=== PATIENT | female | born 1990 | race Caucasian/White ===

== ENCOUNTER 2018-11-12 13:05 | Inpatient (IN) | payer OTHER ==
--- NOTE | 2018-11-12 13:17 | PCM.LDHP ---
L&D History of Present Illness - General Date of Service: 11/12/18 Admit Problem/Dx: Admission Diagnosis/Problem Admission Diagnosis/Problem 11/12/18 13:10 40-6/7 week intrauterine , elective induction of labor Source of Information: Patient History Limitations: Reports: No Limitations - History of Present Illness Introduction:: Silvina is a 28-year-old 2 para 1001 white female who has an SOY of 2018 is based upon a certain last menstrual period starting 01/30/2018 the supported by 2 ultrasounds done on 04/10/2018 and 06/19/2018. Or 3 end 67 weeks gestational age upon admission for an elective induction of labor. The procedure , risks, benefits and alternatives of induction of labor discussed in detail with patient. She appears to understand and wishes to proceed. 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 Patient's certain last menstrual start 01/30/2018. Cycles are regular at 2:30 days. Menarche age 15. Positive hCG was on 03/02/2018. Her past obstetric delivery included a 6 lbs. 5 oz. female born 07/07/2015 at 40 weeks gestational age after 20 hours of labor. In [facility]. Child's name is Aime. course: Patient was initially seen for this at 9 weeks gestational age on 04/10/2018. She was seen on a regular basis. Weight gain was from 157.0-191.6 pounds for a 34 pound weight gain. Fundal height growth was appropriate and vital signs are stable throughout the course. She declined genetic evaluation. Her Sullivan depression screening score was 3/30normal. She desires an epidural for analgesia in labor and delivery. She did have flu vaccination on 07/08/2018. Her group B strep screen is negative. She plans to breast-feed. Her T dap was given on 08/26/2018. labs include blood which is positive with a negative antibody screen. Her hemoglobin at first medical visit was 14.0 g/dL and her platelets were 266, 000. She is rubella immune. RPR is nonreactive. Urine culture was negative. GC and Chlamydia were both negative. Hepatitis B surface antigen and HIV assays were both negative. Second trimester labs showed hemoglobin 13.1 g/dL and platelets of 233,000. Her 1 hour GTT was 104normal. Second trimester RPR was nonreactive. Group B strep screen was negative. Allergies none Medications: 1. vitamins daily Past medical history: 1. Normal spontaneous vaginal delivery 07/07/2015. Past surgical history: 1. Breast augmentation surgery 2010 Family history: Mother is alive but suffers from depression. Father is alive with history of alcohol abuse. She has 3 brothers who are alive and well. Maternal grandmother is secondary to Alzheimer's disease. Paternal grandfather is alive with hypertension history. Both paternal grandparents are alive and well. Patient reports no anesthesia, bleeding, blood clotting or problems in the family. Social history: Patient is single. She lives in [facility]. She is a college graduate. She works in the [employer]. Significant other is John. Does not use any significant muscle L call, drugs or tobacco. Review of systems: In general patient has no complaints. Skin: Negative Lungs: No infectious symptoms or shortness of breath Cardiovascular: No chest pain or exercise intolerance Breasts: Changes associated GI: Negative : Changes associated Musculoskeletal: Negative Neurological: Negative In general the patient is well-developed, well-nourished, pleasant female of stated age in no acute distress. Skin is warm dry without lesions. HEENT, neck and back within normal limits. Lungs are clear with good breath sounds in all lung rae. Cardiovascular exam shows regular and rhythm without murmurs. Abdomen protuberant with fundal height consistent with gestational age. Genital: Cervical exam on last evaluation in clinic showed cervix to be 2 cm/80 % effaced/soft/-4/mid position and vertex presentation Extremities and neurological exam are grossly within normal limits. - Related Data Allergies/Adverse Reactions: Allergies Allergy/AdvReac Type Severity Reaction Status Date / Time No Known Allergies Allergy Verified 06/06/15 17:03 CDT Home Medications: Home Meds Vit #108/Iron/FA [ One Tablet] 1 tab PO DAILY 06/06/15 [History ] Acetaminophen [Tylenol Extra Strength] 500 mg PO Q4H PRN #1 tablet 07/09/15 [Rx] Ibuprofen [Motrin] 800 mg PO Q6H PRN #1 tablet 07/09/15 [Rx] Lanolin [Lansinoh HPA] 1 g TOP ASDIRECTED PRN #1 tube 07/09/15 [Rx] Past Medical History Other OB/BYN History: BREAST IMPLANTS H&P Review of Systems - Review of Systems: Review Of Systems: See Below L&D Exam - Exam Exam: See Below Problem List Initiated/Reviewed/Updated: Yes Assessment/Plan Comment:: 1. 40-6/7 week intrauterine admitted for elective induction of labor 2. Group B strep screen negative 3. Patient plans to breast-feed 4. RPR nonreactive 5. Patient desires epidural for analgesia in labor delivery Plan: 1. Pitocin induction of laborprocedure, risks, benefits, alternatives of care discussed with patient. She appears understand and wishes to proceed. 2. Epidural when necessary for labor analgesia 3. CBC, RPR upon admission to labor and delivery 4. Anticipate .
[2018-11-12] MEDS ORDERED: Sodium Chloride 0.9% 10 ML Syringe FLUSH PRN (20:10)
[2018-11-12] MEDS ORDERED: Ondansetron 4 MG/2 ML SDV IVPUSH PRN (20:10)
[2018-11-12] MEDS ORDERED: Acetaminophen 325 MG Tab PO PRN (20:10)
[2018-11-12] MEDS ORDERED: Nalbuphine 20 MG/ML 1 ML Syringe IVPUSH PRN (20:10)
[2018-11-12] MEDS ORDERED: Oxytocin/Lactated Ringers 10 UNIT/1,000 ML BAG IV SCH (20:15)
[2018-11-12] MEDS ORDERED: Misoprostol 25 MCG (1/4 of 100 MCG) Tab VAG ONE (20:37)
[2018-11-12] MEDS ORDERED: Bupivacaine 0.25% 10 ML SDV ONE (22:00)
[2018-11-12] MEDS ORDERED: Lidocaine 1.5% with EPINEPHrine 1:200,000 5 ML Amp ONE (22:00)
[2018-11-12] MEDS ORDERED: Misoprostol 25 MCG (1/4 of 100 MCG) Tab VAG SCH (23:45)
[2018-11-13] MEDS: Misoprostol 25 MCG (1/4 of 100 MCG) Tab VAG SCH ×3 (00:20→07:22)
[2018-11-13] MEDS: Lactated Ringers 1,000 ML IV SCH ×3 (07:10→09:15)
[2018-11-13] MEDS ORDERED: fentaNYL 100 MCG/2 ML SDV ONE (07:21)
[2018-11-13] MEDS ORDERED: ePHEDrine 50 MG/ML SDV IVPUSH PRN (07:38)
[2018-11-13] MEDS ORDERED: diphenhydrAMINE 50 MG/ML SDV IVPUSH PRN (07:38)
[2018-11-13] MEDS ORDERED: fentaNYL 100 MCG/2 ML SDV EPIDUR PRN (07:38)
--- NOTE | 2018-11-13 07:44 | PCM.PREANE ---
Preanesthetic Assessment - Procedure Proposed Procedure: tea - Anesthesia/Transfusion/Family Hx Anesthesia History: Prior Anesthesia Without Reaction Family History of Anesthesia Reaction: No Transfusion History: No Prior Transfusion(s) - Review of Systems General: No Symptoms Pulmonary: No Symptoms Cardiovascular: No Symptoms Gastrointestinal: No Symptoms Neurological: No Symptoms Other: Reports: None - Physical Assessment O2 Sat by Pulse Oximetry: 96 Respiratory Rate: 14 Vital Signs: Last Vital Signs Temp 97.8 F 11/12/18 21:03 Pulse 78 11/12/18 21:03 Resp 14 11/12/18 21:03 BP 119/72 11/12/18 21:03 Pulse Ox 96 11/12/18 21:03 Height: 5 ft 4 in Weight: 198 kg ASA Class: 2 Mental Status: Alert & Oriented x3 Airway Class: Mallampati = 1 Dentition: Reports: Normal Dentition Thyro-Mental Finger Breadths: 3 Mouth Opening Finger Breadths: 3 ROM/Head Extension: Full Lungs: Clear to Auscultation, Normal Respiratory Effort Cardiovascular: Regular Rate, Regular Rhythm, Murmurs - Lab Values: Laboratory Last Values WBC 8.06 K/mm3 (3.98-10.04) 11/12/18 20:00 RBC 4.14 M/mm3 (3.98-5.22) 11/12/18 20:00 Hgb 13.2 gm/L (11.2-15.7) 11/12/18 20:00 Hct 38.7 % (34.1-44.9) 11/12/18 20:00 MCV 93.5 fl (79.4-94.8) 11/12/18 20:00 MCH 31.9 pg (25.6-32.2) 11/12/18 20:00 MCHC 34.1 g/dl (32.2-35.5) 11/12/18 20:00 RDW Std Deviation 40.9 fL (36.4-46.3) 11/12/18 20:00 Plt Count 238 K/mm3 (182-369) 11/12/18 20:00 MPV 11.3 fl (9.4-12.3) 11/12/18 20:00 Neut % (Auto) 63.8 % (34.0-71.1) 11/12/18 20:00 Lymph % (Auto) 24.3 % (19.3-51.7) 11/12/18 20:00 Ashe % (Auto) 9.9 % (4.7-12.5) 11/12/18 20:00 Eos % (Auto) 1.5 (0.7-5.8) 11/12/18 20:00 Baso % (Auto) 0.1 % (0.1-1.2) 11/12/18 20:00 Neut # (Auto) 5.14 K/mm3 (1.56-6.13) 11/12/18 20:00 Lymph # (Auto) 1.96 K/mm3 (1.18-3.74) 11/12/18 20:00 Ashe # (Auto) 0.80 K/mm3 (0.24-0.36) H 11/12/18 20:00 Eos # (Auto) 0.12 K/mm3 (0.04-0.36) 11/12/18 20:00 Baso # (Auto) 0.01 K/mm3 (0.01-0.08) 11/12/18 20:00 RPR Non-reactive (NONREACTIVE) 11/12/18 20:00 - Allergies Allergies/Adverse Reactions: Allergies Allergy/AdvReac Type Severity Reaction Status Date / Time No Known Allergies Allergy Verified 06/06/15 17:03 CDT - Blood Blood Available: No - Acknowledgements Anesthesia Type Planned: Epidural Pt an Appropriate Candidate for the Planned Anesthesia: Yes Alternatives and Risks of Anesthesia Discussed w Pt/Guardian: Yes Pt/Guardian Understands and Agrees with Anesthesia Plan: Yes PreAnesthesia Questionnaire HEENT History: Reports: Impaired Vision Other HEENT History: wears glasses Cardiovascular History: Reports: Heart Murmur Respiratory History: Reports: None 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) Para: 1 Other OB/BYN History: BREAST IMPLANTS - SUBSTANCE USE Smoking Status *Q: Never Smoker Tobacco Use Within Last Twelve Months: No Second Hand Smoke Exposure: No Days Per Week of Alcohol Use: 0 Recreational Drug Use History: No - HOME MEDS Home Medications: Home Meds Vit #108/Iron/FA [ One Tablet] 1 tab PO DAILY 06/06/15 [History ] Acetaminophen [Tylenol Extra Strength] 500 mg PO Q4H PRN #1 tablet 07/09/15 [Rx] Ibuprofen [Motrin] 800 mg PO Q6H PRN #1 tablet 07/09/15 [Rx] Lanolin [Lansinoh HPA] 1 g TOP ASDIRECTED PRN #1 tube 07/09/15 [Rx] - CURRENT (IN HOUSE) MEDS Current Meds: Current Medications Acetaminophen (Tylenol) 650 mg PO Q4H PRN PRN Reason: Pain (Mild 1-3) and fever Last Admin: 11/13/18 03:20 Dose: 650 mg Diphenhydramine HCl (Benadryl) 25 mg IVPUSH Q6H PRN PRN Reason: pruritis Ephedrine Sulfate (Ephedrine Sulfate) 5 mg IVPUSH ASDIRECTED PRN PRN Reason: Hypotension Fentanyl (Sublimaze) 100 mcg EPIDUR Q3H PRN PRN Reason: Pain Fentanyl/Bupivacaine HCl (Fentanyl/Bupivacaine/Ns 2 Mcg-0.125% 100 Ml) 100 ml EPIDUR ASDIRECTED YARELIS Lactated Ringer's (Ringers, Lactated) 1,000 mls @ 100 mls/hr IV ASDIRECTED YARELIS Oxytocin/Lactated Ringer's (Pitocin In Lr 10 Units/1,000 Ml) 10 unit in 1,000 mls @ 12 mls/hr IV TITRATE YARELIS; Protocol Oxytocin 20 unit/ Lactated (Ringer's) 1,002 mls @ 500 mls/hr IV TITRATE YARELIS; Protocol Nalbuphine HCl (Nubain) 10 mg IVPUSH Q2H PRN PRN Reason: pain Ondansetron HCl (Zofran) 4 mg IVPUSH Q4H PRN PRN Reason: Nausea/Vomiting Sodium Chloride (Saline Flush) 10 ml FLUSH ASDIRECTED PRN PRN Reason: Keep Vein Open Discontinued Medications Fentanyl (Sublimaze) Confirm Administered Dose 100 mcg .ROUTE .STK-MED ONE Stop: 11/13/18 07:22 Last Admin: 11/13/18 07:39 Dose: 100 mcg Misoprostol (Cytotec) 25 mcg VAG ONETIME ONE Stop: 11/12/18 20:38 Last Admin: 11/12/18 21:15 Dose: 25 mcg Misoprostol (Cytotec) 50 mcg VAG Q3HR YARELIS Stop: 11/13/18 00:01 Misoprostol (Cytotec) 50 mcg VAG Q3H YARELIS Last Admin: 11/13/18 07:22 Dose: Not Given
[2018-11-13] MEDS ORDERED: fentaNYL/Bupivacaine-NS 2 MCG/ML-0.125%/PF 100 ML Bag EP SCH (07:45)
[2018-11-13] MEDS ORDERED: Benzocaine/Menthol 20%-0.5% Spray 56 GM Canister TOP PRN (11:39)
[2018-11-13] MEDS ORDERED: Witch Hazel Medicated Pads 100/Jar TOP PRN (11:39)
[2018-11-13] MEDS ORDERED: Lanolin 100% Cream 7 GM Tube TOP PRN (11:39)
[2018-11-13] MEDS ORDERED: Acetaminophen 325 MG Tab PO PRN (11:39)
--- NOTE | 2018-11-13 14:20 | PCM.SN ---
- Free Text/Narrative Note: Delivery note: Silvian 28-year-old 2 now para 2002 white female was admitted for gestational age of 41-0/7 weeks gestation. Her SOY was 11/06/2018. She initially was treated with Cytotec for cervical ripening. 25 g dose initially followed every 3 hours by 3 more 50 g doses. These were administered vaginally. Cervix changed patient to dilated to approximately 3-4 cm, 100% effaced and was having contractions every 3 minutes. She progressed well, dilated rapidly to complete cervical dilation by 1000 hrs. on 11/05/2018. She delivered a viable, single male infant 3108 ounces.Delivered in a left occiput anterior position. Cord was noted to be around the neck moderately tight 2. Baby was delivered through the cord and cord was reduced over the baby 's body. The time of the delivery was 1019 hrs. The baby was placed on the mother's abdomen, nose and mouth were bulb suctioned. Pitocin was started IV to facilitate an increase in uterine tone and decrease likelihood of bleeding. The cord was clamped 2 then cut by the baby's father. Cord blood was obtained. The placenta delivered relatively rapidly at 1022 hrs. In a Naranjo presentation , appeared intact and complete. Patient had a first-degree perineal laceration. It was repaired with 3-0 Monocryl suture with a single figure-of- eight stitch. Estimated blood loss was 100 mL. Patient plans to breast-feed. Condition: Good
[2018-11-13] MEDS: Ibuprofen 600 MG Tab PO PRN ×2 (14:47→20:06)
[2018-11-14] MEDS: Ibuprofen 600 MG Tab PO PRN (08:00)
--- NOTE | 2018-11-14 08:02 | PCM48HPAN ---
Post Anesthesia Note - EVALUATION WITHIN 48HRS OF ANESTHETIC Vital Signs in Normal Range: Yes Patient Participated in Evaluation: Yes Respiratory Function Stable: Yes Airway Patent: Yes Cardiovascular Function Stable: Yes Hydration Status Stable: Yes Pain Control Satisfactory: Yes Nausea and Vomiting Control Satisfactory: Yes Mental Status Recovered: Yes - COMMENTS/OBSERVATIONS Free Text/Narrative:: Patient denies any anesthesia complications
--- NOTE | 2018-11-14 08:45 | PCM.SN ---
- Free Text/Narrative Note: note: Patient is doing well in the period. Minimal lochia, voiding well, ambulated without problems. Nursing without concerns. Patient is afebrile, vital signs are stable Abdomen is flat, soft, uterus is below the umbilicus and is firm and nontender. Legs are nontender. Assessment: recovery going well. Plan: Routine care. Patient be discharged home within the next 24-48 hours.
[2018-11-14] MEDS ORDERED: Prenatal Multivitamin with Calcium/Folic Acid/Iron Tab PO SCH (09:00)
--- NOTE | 2018-11-14 12:25 | PCM.DCSUM1 ---
Discharge Summary - Hospital Course Free Text/Narrative:: Silvina 28-year-old 2 now para 2002 white female was admitted for gestational age of 41-0/7 weeks gestation. Her SOY was 11/06/2018. She initially was treated with Cytotec for cervical ripening. 25 g dose initially followed every 3 hours by 3 more 50 g doses. These were administered vaginally. Cervix changed patient to dilated to approximately 3-4 cm, 100% effaced and was having contractions every 3 minutes. She progressed well, dilated rapidly to complete cervical dilation by 1000 hrs. on 11/05/2018. She delivered a viable, single male 3108 ounces.Delivered in a left occiput anterior position. Cord was noted to be around the neck moderately tight 2. Baby was delivered through the cord and cord was reduced over the baby 's body. The time of the delivery was 1019 hrs. The baby was placed on the mother's abdomen, nose and mouth were bulb suctioned. Pitocin was started IV to facilitate an increase in uterine tone and decrease likelihood of bleeding. The cord was clamped 2 then cut by the baby's father. Cord blood was obtained. The placenta delivered relatively rapidly at 1022 hrs. In a Naranjo presentation , appeared intact and complete. Patient had a first-degree perineal laceration. It was repaired with 3-0 Monocryl suture with a single figure-of- eight stitch. Estimated blood loss was 100 mL. Patient plans to breast-feed. patient is doing well. She is ambulating well, nursing without problems and having no significant bladder complaints. She is desiring discharge home. Condition: Good Diagnosis: Stroke: No - Discharge Data Discharge Date: 11/14/18 Discharge Disposition: Home, Self-Care 01 Condition: Good - Patient Instructions Diet: Regular Diet as Tolerated (Nursing diet with increase calories and calcium is recommended) Activity: As Tolerated (No intercourse or tampons until bleeding resolves) Driving: May Drive Today Showering/Bathing: May Shower (May take a bath) Notify Provider of: Fever, Increased Pain, Swelling and Redness, Nausea and/or Vomiting - Discharge Plan Home Medications: Home Meds Vit #108/Iron/FA [ One Tablet] 1 tab PO DAILY 06/06/15 [History ] Lanolin [Lansinoh HPA] 1 g TOP ASDIRECTED PRN #1 tube 07/09/15 [Rx] Acetaminophen [Tylenol] 650 mg PO Q4H PRN tablet 11/14/18 [Rx] Ibuprofen [Motrin] 600 mg PO Q4H PRN tablet 11/14/18 [Rx] Referrals: Andrea Penny MD [Primary Care Provider] - (Return to clinicDr. Penny2 weeks.) - Discharge Summary/Plan Comment DC Time >30 min.: No Discharge Summary/Plan Comment: Discharge instructions: 1. Discharge home 2. Diet, activity and follow-up discussed with patient. Recommend nursing diet with increased calories and calcium. 3. Precautions given concern increased pain, bleeding, temperature, signs/ symptoms of DVT/PE. 4. Medications per home medication was printed, discussed with and given to the patient. 5. Return to clinic-Dr. Penny[facility] in 2 weeks. Diagnosis: Term -delivered Condition: Good - Patient Data Vitals - Most Recent: Last Vital Signs Temp 36.6 C 11/14/18 02:59 Pulse 51 L 11/14/18 02:59 Resp 16 11/14/18 02:59 BP 124/70 11/14/18 02:59 Pulse Ox 98 11/14/18 02:59 Weight - Most Recent: 198 kg I&O - Last 24 hours: Intake & Output 11/13/18 11/14/18 11/14/18 22:59 06:59 14:59 Intake Total 240 Balance 240 Med Orders - Current: Current Medications Acetaminophen (Tylenol) 650 mg PO Q4H PRN PRN Reason: mild pain or fever Benzocaine/Menthol (Dermoplast Pain Relief Drury) 0 gm TOP ASDIRECTED PRN PRN Reason: Perineal Comfort Measure Last Admin: 11/13/18 14:50 Dose: 1 can Emollient Ointment (Lansinoh Hpa) 0 gm TOP ASDIRECTED PRN PRN Reason: Sore Nipples Ibuprofen (Motrin) 600 mg PO Q4H PRN PRN Reason: Mild pain or fever Last Admin: 11/14/18 08:00 Dose: 600 mg Prenat Multivit/Brinckerhoff/Iron/Folic Ac ( Plus Iron) 1 each PO DAILY YARELIS Thompson (Tucks) 1 pad TOP ASDIRECTED PRN PRN Reason: Hemorrhoid pain Last Admin: 11/13/18 14:49 Dose: 1 applic Discontinued Medications Acetaminophen (Tylenol) 650 mg PO Q4H PRN PRN Reason: Pain (Mild 1-3) and fever Last Admin: 11/13/18 03:20 Dose: 650 mg Diphenhydramine HCl (Benadryl) 25 mg IVPUSH Q6H PRN PRN Reason: pruritis Ephedrine Sulfate (Ephedrine Sulfate) 5 mg IVPUSH ASDIRECTED PRN PRN Reason: Hypotension Fentanyl (Sublimaze) Confirm Administered Dose 100 mcg .ROUTE .STK-MED ONE Stop: 11/13/18 07:22 Last Admin: 11/13/18 07:39 Dose: 100 mcg Fentanyl (Sublimaze) 100 mcg EPIDUR Q3H PRN PRN Reason: Pain Fentanyl/Bupivacaine HCl ([id number] 2 Mcg/Ml-0.125%) 100 ml EP ASDIRECTED YARELIS Last Admin: 11/13/18 07:45 Dose: 100 ml Lactated Ringer's (Ringers, Lactated) 1,000 mls @ 100 mls/hr IV ASDIRECTED YARELIS Last Admin: 11/13/18 09:15 Dose: 999 mls/hr Oxytocin/Lactated Ringer's (Pitocin In Lr 10 Units/1,000 Ml) 10 unit in 1,000 mls @ 12 mls/hr IV TITRATE YARELIS; Protocol Last Admin: 11/13/18 10:20 Dose: 2 munits/min, 12 mls/hr Oxytocin 20 unit/ Lactated (Ringer's) 1,002 mls @ 500 mls/hr IV TITRATE YARELIS; Protocol Misoprostol (Cytotec) 25 mcg VAG ONETIME ONE Stop: 11/12/18 20:38 Last Admin: 11/12/18 21:15 Dose: 25 mcg Misoprostol (Cytotec) 50 mcg VAG Q3HR YARELIS Stop: 11/13/18 00:01 Misoprostol (Cytotec) 50 mcg VAG Q3H YARELIS Last Admin: 11/13/18 07:22 Dose: Not Given Nalbuphine HCl (Nubain) 10 mg IVPUSH Q2H PRN PRN Reason: pain Ondansetron HCl (Zofran) 4 mg IVPUSH Q4H PRN PRN Reason: Nausea/Vomiting Sodium Chloride (Saline Flush) 10 ml FLUSH ASDIRECTED PRN PRN Reason: Keep Vein Open
[2018-11-14 13:51] VITALS: BP 126/79
== END 2018-11-14 13:40 | disposition home or self-care (01) | DRG 807 ==
LOC: JD.OB 18:41 → OBSVTOIN 11-13 10:19 → JD.MS 11-13 10:32 → JD.OB 11-13 11:45
PROVIDERS: ADMIT Obstetrics & Gynecology; ATTEND Obstetrics & Gynecology
PROC: 0HQ9XZZ Repair Perineum Skin, External Approach (ICD-10-PCS; principal; 2018-11-13)
PROC: 3E0P7VZ Introduction of Hormone into Female Reproductive, Via Natural or Artificial Opening (ICD-10-PCS; principal; 2018-11-13)
PROC: 3E033VJ Introduction of Other Hormone into Peripheral Vein, Percutaneous Approach (ICD-10-PCS; principal; 2018-11-13)
PROC: 6A550ZT Pheresis of Cord Blood Stem Cells, Single (ICD-10-PCS; principal; 2018-11-13)
PROC: 10E0XZZ Delivery of Products of Conception, External Approach (ICD-10-PCS; principal; 2018-11-13)
PROC: 00HU33Z Insertion of Infusion Device into Spinal Canal, Percutaneous Approach (ICD-10-PCS; 2018-11-13)
PROC: 3E0R3BZ Introduction of Anesthetic Agent into Spinal Canal, Percutaneous Approach (ICD-10-PCS; 2018-11-13)
DX: O48.0 Post-term pregnancy (principal); Z37.0 Single live birth; Z3A.41 41 weeks gestation of pregnancy; O69.1XX0 Labor and delivery complicated by cord around neck, with compression, not applicable or unspecified; O70.0 First degree perineal laceration during delivery
CPT/HCPCS: 36415; 51702; 59025; 59409; 85025; 86592; A9270-GY; J2590; J3010; J3490; J7120

== ENCOUNTER 2023-09-03 07:25 | Day surgery (SDC) | payer BC ==
[~2023-09-03 07:25] MED LIST: Lactated Ringers 1,000 ML IV SCH; Lidocaine 1% 5 ML VIAL ONE; Midazolam 1 MG/ML 2 ML SDV ONE; Ondansetron 4 MG/2 ML SDV ONE; Propofol 200 MG/20 ML SDV ONE; Sodium Chloride 0.9% 10 ML Syringe FLUSH PRN; Sodium Chloride 0.9% 10 ML Syringe FLUSH SCH; fentaNYL 250 MCG/5 ML SDV ONE
[2023-09-03] MEDS ORDERED: ceFAZolin 2 GM Vial ONE (07:33)
[2023-09-03] MEDS ORDERED: fentaNYL 100 MCG/2 ML SDV IVPUSH PRN (07:58)
[2023-09-03] MEDS ORDERED: Ondansetron 4 MG/2 ML SDV IVPUSH PRN (07:58)
[2023-09-03] MEDS ORDERED: HYDROmorphone 0.5 MG/0.5 ML Syringe IVPUSH PRN (07:58)
[2023-09-03 08:21] LABS: APPEARANCE,URINE CLEAR (Clear); BILIRUBIN,URINE NEGATIVE (Negative); COLOR,URINE YELLOW (Yellow); GLUCOSE,URINE NEGATIVE (Negative); KETONES,URINE NEGATIVE (Negative); LEUKOCYTE ESTERASE,URINE NEGATIVE (Negative); NITRITE,URINE NEGATIVE (Negative); OCCULT BLOOD,URINE NEGATIVE (Negative); PH,URINE 6.5 (5.0-8.0); PROTEIN,URINE NEGATIVE (Negative); UROBILINOGEN,URINE 0.2 (0.2-1.0)
[2023-09-03] MEDS ORDERED: Dexamethasone 4 MG/ML 5 ML MDV ONE (08:38)
[2023-09-03] MEDS ORDERED: ePHEDrine 50 MG/ML SDV ONE (08:50)
[2023-09-03] MEDS ORDERED: Ketorolac 30 MG/ML SDV ONE (08:57)
[2023-09-03] MEDS ORDERED: Lactated Ringers 1,000 ML ONE (08:58)
[2023-09-03] MEDS ORDERED: Acetaminophen/HYDROcodone 325-5 MG Tab PO PRN (09:38)
== END 2023-09-03 11:20 | disposition home or self-care (01) ==
LOC: JD.SDS 07:25
PROVIDERS: ATTEND Obstetrics & Gynecology
DX: N92.0 Excessive and frequent menstruation with regular cycle (principal); N94.6 Dysmenorrhea, unspecified
CPT/HCPCS: 58563; 81003; 81025; J0690; J1100; J1885; J2250; J2405; J2704; J3010; J7120; J3490